=== PATIENT | female | born 1980 | race Caucasian/White ===

== ENCOUNTER → 2017-03-14 | Outpatient (CLI) | payer OTHER ==
[2017-03-14 10:37] LABS: Basophils % (A) 1 %; CH 29.8; CHCM 31.3; Eosinophils # (A) 0.2 k/uL (0-0.7); Eosinophils % (A) 4 %; HCT 40.6 % (34.0-46.0); HDW 2.36; HGB 12.7 gm/dL (11.4-16.0); Luc # (Auto) 0.09; Luc % (Auto) 2; Lymphocytes # (A) 1.5 k/uL (1.0-4.8); Lymphocytes % (A) 26 %; MCH 30.1 pg (25.0-35.0); MCHC 31.4 g/dL (31.0-37.0); MCV 95.9 fL (80.0-100.0); Mean Platelet Volume 7.5; Monocytes # (A) 0.3 k/uL (0-1.0); Monocytes % (A) 5 %; Neutrophils # (A) 3.6 k/uL (1.3-7.7); Neutrophils % (A) 63 %; RBC 4.24 m/uL (3.80-5.40); RDW 13.8 % (11.5-15.5); WBC 5.8 k/uL (3.8-10.6); WBC (Perox) 5.86
== END | disposition home or self-care (01) ==
LOC: LABPAT 10:13
PROVIDERS: ATTEND Orthopaedic Surgery
DX: Z01.812 Encounter for preprocedural laboratory examination (principal); R35.0 Frequency of micturition
CPT/HCPCS: 81025; 85025

== ENCOUNTER 2017-03-22 11:24 | Day surgery (SDC) | payer OTHER ==
[2017-03-19 16:14] VITALS: BMI 26.6
--- NOTE | 2017-03-21 16:16 | HP ---
HISTORY AND PHYSICAL DATE OF SURGERY: 03/22/2017 Gisel Plata is a 37-year-old patient seen with persistently symptomatic left wrist deQuervain's tendinitis and a symptomatic exostosis as well. We discussed options, and she elected to proceed with surgical intervention. Consent was obtained. PAST MEDICAL HISTORY: Noncontributory. PAST SURGICAL HISTORY: 1. section. 2. Cholecystectomy. 3. [place] tooth extraction. DAILY MEDICATIONS: Claritin. ALLERGIES: NONE REPORTED. SOCIAL HISTORY: Patient denies tobacco use. PHYSICAL EVALUATION OF HER LEFT WRIST: She has tenderness along the first dorsal compartment. She has a positive Varun's test. There is tenderness along the radial styloid area as well. She has good range of motion of her wrist and digits. She is nontender along the A1 trev areas. She has good perfusion and sensation distally. RADIOGRAPHS: Radiographs of the left wrist revealed a small exostosis along the distal radius along the radial side. IMPRESSION: 1. Left wrist deQuervain's tendinitis. 2. Left wrist symptomatic exostosis. PLAN: Release first dorsal compartment of left wrist with probable excision of exostosis. MMODL / IJN: [id number] /
[~2017-03-22 11:24] MED LIST: DEXAMETHASONE SOD PHOSPHATE 10 MG/ML 1 ML VIAL IV ONE; HYDROmorphone 0.5 MG/0.5 ML SYRINGE IVP PRN; LACTATED RINGERS 1,000 ML IV SCH; MIDAZOLAM 2 MG/2 ML VIAL IV PRN; ONDANSETRON 4 MG/2 ML VIAL IVP ONE; SCOPOLAMINE 1.5MG/72HR PATCH TRANSDERM ONE; ceFAZolin 1,000 MG in DEXTROSE/WATER 1 50ML.BAG IV ONE
[2017-03-22 11:31] VITALS: TEMP 98
[2017-03-22] MEDS ORDERED: LIDOCAINE 1% 20 ML VIAL (10MG/ML) FOR IV START INTRADERMA ONE (11:33)
[2017-03-22] MEDS ORDERED: LACTATED RINGERS 1,000 ML IV ONE (11:33)
[2017-03-22] MEDS ORDERED: LIDOCAINE 1% INJ 10MG/ML (20 ML MDV) ONE (12:15)
[2017-03-22] MEDS ORDERED: PROPOFOL 10 MG/ML 20 ML VIAL IV ONE (12:15)
[2017-03-22] MEDS ORDERED: fentaNYL (PF) 50 MCG/ML 2 ML AMP ONE (12:15)
[2017-03-22] MEDS ORDERED: MIDAZOLAM 2 MG/2 ML VIAL ONE (12:15)
[2017-03-22] MEDS ORDERED: BUPIVACAINE (PF) 0.25% 30 ML VIAL SQ ONE (12:26)
[2017-03-22 12:46] VITALS: RESP 16
--- NOTE | 2017-03-22 12:48 | P.OP ---
Date of Procedure: 03/22/17 Preoperative Diagnosis: Left wrist de Quervain's tendinitis Postoperative Diagnosis: Same Procedure(s) Performed: Release first dorsal compartment left wrist Implants: None Anesthesia: MAC, local Surgeon: Kenyon Luis Estimated Blood Loss (ml): 3 Pathology: none sent Condition: stable Disposition: PACU Indications for Procedure: 37-year-old patient seen with persistent left wrist de Quervain's tendinitis failing conservative treatment measures. After treatment options were discussed , she elected to proceed with release first dorsal compartment left wrist. Operative Findings: see description of procedure Description of Procedure: The patient was taken to the operative suite. The patient received preoperative IV antibiotics. The patient underwent IV sedation by department of anesthesia. A well-padded tourniquet was placed proximal left upper extremity. The left upper extremity was now prepped and draped in the normal sterile orthopedic fashion. I infiltrated the proposed incision site with quarter percent plain Marcaine. I now made a longitudinal/oblique incision based over the first dorsal compartment left wrist measuring approximately 2 cm. I carefully now dissected down to the first dorsal compartment and released the tendons with a blunt tenotomy. I had good complete release of the tendons and good excursion with no impingement. The exostosis present radiographically did not seem to impinge the tendons. The wound was irrigated. The skin margins were proximal nylon suture. Sterile dressings were applied. I applied a loose web roll and Donald bandage. The tourniquet was released and immediate capillary refill was noted to all digits. The patient was awakened and transferred to recovery stable condition.
[2017-03-22 13:17] VITALS: BP 131/61; PULSE 49
== END 2017-03-22 13:43 | disposition home or self-care (01) ==
LOC: OR 11:24
PROVIDERS: ATTEND Orthopaedic Surgery
DX: M65.4 Radial styloid tenosynovitis [de Quervain] (principal); M89.9 Disorder of bone, unspecified; F32.9 Major depressive disorder, single episode, unspecified; Z79.899 Other long term (current) drug therapy; Z88.6 Allergy status to analgesic agent
CPT/HCPCS: 25000; 81025; J2250; J1100; J2405; J2001; J3010; J0690; J2704

== ENCOUNTER → 2022-12-20 | Outpatient (CLI) | payer OTHER ==
--- NOTE | 2022-12-21 08:19 | MM ---
Reason for Exam: Screening (asymptomatic). Last mammogram was performed 8 year(s) and 1 month(s) ago. Patient History: Menarche at age 11. First Full-Term at age 28. Patient used Hormonal Contraceptives for 1 year. Last menstrual period: 12/18/2022 Risk Values: Shonda 5 year model risk: 0.8%. NCI Lifetime model risk: 10.8%. Prior Study Comparison: 11/23/2014 Bilateral Screening Mammogram, [facility]. Tissue Density: The breast tissue is heterogeneously dense. This may lower the sensitivity of mammography. Findings: Analyzed By CAD. There is no suspicious group of microcalcifications or new suspicious mass in either breast. Overall Assessment: Negative, BI-RAD 1 Management: Screening Mammogram of both breasts in [address] [facility] will attempt to contact patient to return for supplemental views and ultrasound if indicated. Patient should continue monthly self-breast exams. A clinical breast exam by your physician is recommended on an annual basis. This exam should not preclude additional follow-up of suspicious palpable abnormalities. Note on Shonda scores and lifetime risk: 1. A Shonda score greater than 3% is considered moderate risk. If this is the case, consider specialist referral to assess eligibility for a risk reducing agent. 2. If overall lifetime risk for the development of breast cancer is 20% or higher, the patient may qualify for future screening with alternating mammogram and breast MRI. Electronically signed and approved by: Henrik Hankins DO
== END | disposition home or self-care (01) ==
LOC: RADMAMWWP 07:41
PROVIDERS: ATTEND Family Medicine
DX: Z12.31 Encounter for screening mammogram for malignant neoplasm of breast (principal)
CPT/HCPCS: 77063; 77067

== ENCOUNTER → 2023-12-24 | Outpatient (CLI) | payer OTHER ==
--- NOTE | 2023-12-24 10:17 | MM ---
Reason for Exam: Screening (asymptomatic). Last screening mammogram was performed 12 month(s) ago. Patient History: Menarche at age 11. First Full-Term at age 28. Patient used Hormonal Contraceptives for 1 year. Last menstrual period: 12/14/2023 Risk Values: Shonda 5 year model risk: 0.9%. NCI Lifetime model risk: 10.7%. Prior Study Comparison: 11/23/2014 Bilateral Screening Mammogram, [facility]. 12/20/2022 Bilateral MG 3D screening mammo w/cad, [facility]. Tissue Density: There are scattered areas of fibroglandular density. Findings: Analyzed By CAD. Right breast: There is no suspicious group of microcalcifications or new suspicious mass. Left breast: There is no suspicious group of microcalcifications or new suspicious mass. Overall Assessment: Negative, BI-RAD 1 Management: Screening Mammogram of both breasts in [address] [facility] will attempt to contact patient to return for supplemental views and ultrasound if indicated. Patient should continue monthly self-breast exams. A clinical breast exam by your physician is recommended on an annual basis. This exam should not preclude additional follow-up of suspicious palpable abnormalities. Note on Shonda scores and lifetime risk: 1. A Shonda score greater than 3% is considered moderate risk. If this is the case, consider specialist referral to assess eligibility for a risk reducing agent. 2. If overall lifetime risk for the development of breast cancer is 20% or higher, the patient may qualify for future screening with alternating mammogram and breast MRI. Electronically signed and approved by: Henrik Hankins DO
== END | disposition home or self-care (01) ==
LOC: RADMAMWWP 08:37
PROVIDERS: ATTEND Family Medicine
DX: Z12.31 Encounter for screening mammogram for malignant neoplasm of breast (principal); Z92.0 Personal history of contraception
CPT/HCPCS: 77063; 77067

== ENCOUNTER → 2024-12-24 | Outpatient (CLI) | payer BC ==
--- NOTE | 2024-12-24 10:29 | MM ---
Reason for Exam: Screening (asymptomatic). Last screening mammogram was performed 12 month(s) ago. Patient History: Menarche at age 11. First Full-Term at age 28. Patient used Hormonal Contraceptives for 1 year. Risk Values: Shonda 5 year model risk: 0.9%. NCI Lifetime model risk: 10.6%. Prior Study Comparison: 11/23/2014 Bilateral Screening Mammogram, [facility]. 12/20/2022 Bilateral MG 3D screening mammo w/cad, [facility]. 12/24/2023 Bilateral MG 3D screening mammo w/cad, [facility]. Tissue Density: The breasts are heterogeneously dense, which may obscure small masses. Findings: Analyzed By CAD. Occasional tiny benign-appearing punctate calcifications throughout the bilateral breasts is redemonstrated. There is no suspicious group of microcalcifications or new suspicious mass in either breast. Overall Assessment: Benign, BI-RAD 2 Management: Screening Mammogram of both breasts in 1 year. . Patient should continue monthly self-breast exams. A clinical breast exam by your physician is recommended on an annual basis. This exam should not preclude additional follow-up of suspicious palpable abnormalities. Note on Shonda scores and lifetime risk: 1. A Shonda score greater than 3% is considered moderate risk. If this is the case, consider specialist referral to assess eligibility for a risk reducing agent. 2. If overall lifetime risk for the development of breast cancer is 20% or higher, the patient may qualify for future screening with alternating mammogram and breast MRI. [facility], , 12/24/2024 10:25 AM. Electronically signed and approved by: Rafi Martini M.D.
== END | disposition home or self-care (01) ==
LOC: RADMAMWWP 08:59
PROVIDERS: ATTEND Family Medicine
DX: Z12.31 Encounter for screening mammogram for malignant neoplasm of breast (principal); R92.333 Mammographic heterogeneous density, bilateral breasts; Z92.0 Personal history of contraception
CPT/HCPCS: 77063; 77067